=== PATIENT | female | born 1970 | race Caucasian/White ===

== ENCOUNTER → 2018-12-17 | Outpatient (CLI) | payer MEDICAID | LOC: GIMAGING 14:08 → EDSTATUS 16:06 | PROVIDERS: ATTEND Family Medicine | DX: M62.838 Other muscle spasm (principal); M54.2 Cervicalgia | CPT/HCPCS: 72050-PO ==

== ENCOUNTER 2018-12-24 13:08 | Emergency (ER) | payer MEDICAID ==
[2018-12-24] MEDS ORDERED: NS 1,000 ML IV ONE (14:24)
[2018-12-24] MEDS ORDERED: ONDANSETRON 4 MG/2 ML VIAL IVP ONE (14:24)
--- NOTE | 2018-12-24 14:27 | EDPHY ---
H & P Smoking Status: Never smoked Time Seen by Provider: 12/24/18 14:08 HPI/ROS: Chief complaint. Abdominal pain HPI. 48-year-old female presents with exacerbation of chronic abdominal problems. She has had suprapubic and low abdominal pain for a long time. She has had increased pain the last 2 days however. No radiation to her back. She described as sharp. She has also had nausea vomiting. She has noted some blood in her stool the past 2 days. No diarrhea. Denies urinary symptoms. No chest pain or shortness of breath. No fever. Saw PCP yesterday who felt that this was likely a virus. Previous abdominal surgery of 2 C sections and hysterectomy ROS 10 systems were reviewed and negative with the exception of the elements mentioned in the history of present illness (Shayan Batista) Past Medical/Surgical History: , hysterectomy, carpal tunnel syndrome (Shayan Batista) Social History: , nonsmoker, no alcohol (Shayan Batista) Physical Exam: General Appearance: Alert well-developed female moderate distress vital signs are stable Eyes: Pupils equal and round no pallor or injection. ENT, Mouth: Mucous membranes are moist. Respiratory: There are no retractions, lungs are clear to auscultation. Cardiovascular: Regular rate and rhythm. Gastrointestinal: Abdomen is soft with tenderness in the suprapubic area bilaterally. No particular tenderness at McBurney's point. Rectal exam shows brown stool Neurological: Awake and alert, sensory and motor exams grossly normal. Skin: Warm and dry, no rashes. Musculoskeletal: Neck is supple nontender. Extremities symmetrical, full range of motion. Psychiatric: Patient is oriented X 3, there is no agitation. (Shayan Batista) Constitutional: Initial Vital Signs Temperature (C) 36.7 C 12/24/18 13:22 Heart Rate 89 12/24/18 13:22 Respiratory Rate 18 12/24/18 13:22 Blood Pressure 102/84 H 12/24/18 13:22 O2 Sat (%) 94 12/24/18 13:22 O2 Delivery Mode Room Air Allergies/Adverse Reactions: No Known Allergies Allergy (Unverified 12/24/18 13:22) Home Medications: Medication Instructions Recorded Amoxicillin/Clavulanate Pot 875 mg PO BID #14 tab 12/24/18 [Augmentin 875 MG TAB (*)] Medical Decision Making Procedures: IV normal saline. Morphine for pain. Zofran for nausea (Shayan Batista) Differential Diagnosis: I have considered urinary tract infection, diverticulitis, bowel obstruction, appendicitis (Shayan Batista) Other Provider: I assumed care of this patient from Dr. Batista at 3:00 p.m.. She was undergoing awaiting results with CT scan at that time. CT was reported to me. It shows mild sigmoid diverticulitis without perforation, abscess or obstruction. She is started on Augmentin. She will follow up with her primary care provider. Danger signs reviewed with her. (Meaghan Gomez) Care Turn Over: Dr. Gomez at 1530 (Shayan Batista) - Data Points Laboratory Results: Laboratory Results 12/24/18 14:10 12/24/18 14:10 Medications Given: Discontinued Medications Sodium Chloride (Ns) 1,000 mls @ 0 mls/hr IV EDNOW ONE; Wide Open PRN Reason: Protocol Stop: 12/24/18 14:25 Last Admin: 12/24/18 15:05 Dose: 1,000 mls Morphine Sulfate (Morphine) 6 mg IVP EDNOW ONE Stop: 12/24/18 14:25 Last Admin: 12/24/18 15:05 Dose: 6 mg Ondansetron HCl (Zofran) 4 mg IVP EDNOW ONE Stop: 12/24/18 14:25 Last Admin: 12/24/18 15:05 Dose: 4 mg Departure - Departure Disposition: Home, Routine, Self-Care Clinical Impression: Diverticulitis Abdominal pain Qualifiers: Abdominal location: left lower quadrant Qualified Code(s): R10.32 - Left lower quadrant pain Condition: Fair Instructions: Diverticulitis (ED) Referrals: Duran Farfan MD [Primary Care Provider] - As per Instructions Prescriptions: Amoxicillin/Clavulanate Pot [Augmentin 875 MG TAB (*)] 875 mg PO BID #14 tab
[2018-12-24 14:32] LABS: PLATELET COUNT 325 10^3/uL (150-400)
[2018-12-24] MEDS ORDERED: IOPAMIDOL (ISOVUE-300) 100 ML BTL ONE (14:58)
[2018-12-24 17:13] VITALS: BP 105/74
== END 2018-12-24 17:24 | disposition home or self-care (01) ==
DX: K57.32 Diverticulitis of large intestine without perforation or abscess without bleeding (principal); E86.9 Volume depletion, unspecified; Z90.710 Acquired absence of both cervix and uterus
CPT/HCPCS: 96374; J2270; J2405; Q9967

== ENCOUNTER → 2019-01-01 | Outpatient (CLI) | payer MEDICAID | LOC: FIMAGING 07:53 | PROVIDERS: ATTEND Family Medicine | DX: Z12.31 Encounter for screening mammogram for malignant neoplasm of breast (principal) ==

== ENCOUNTER → 2019-01-24 | Outpatient (CLI) | payer MEDICAID | LOC: FIMAGING 07:50 | PROVIDERS: ATTEND Family Medicine | DX: R92.8 Other abnormal and inconclusive findings on diagnostic imaging of breast (principal) ==

== ENCOUNTER → 2019-01-27 | Outpatient (CLI) | payer MEDICAID | LOC: GIMAGING 10:45 → EDSTATUS 15:57 | PROVIDERS: ATTEND Family Medicine | DX: S33.140A Subluxation of L4/L5 lumbar vertebra, initial encounter (principal); M47.896 Other spondylosis, lumbar region | CPT/HCPCS: 72100-PO ==

== ENCOUNTER → 2019-02-03 | Outpatient (CLI) | payer MEDICAID ==
[~2019-02-03] MED LIST: BUPIVACAINE 0.5% 30 ML SDV ONE; LIDOCAINE 1% 300 MG/30 ML SDV ONE
== END ==
LOC: FIMAGING 07:25
PROVIDERS: ATTEND Family Medicine
PROC: 0HBT3ZX Excision of Right Breast, Percutaneous Approach, Diagnostic (ICD-10-PCS; principal; 2019-02-03)
DX: N60.11 Diffuse cystic mastopathy of right breast (principal)

== ENCOUNTER → 2019-02-10 | Outpatient (CLI) | payer MEDICAID | LOC: FIMAGING 06:19 | PROVIDERS: ATTEND Family Medicine | DX: M43.16 Spondylolisthesis, lumbar region (principal) ==